=== PATIENT | female | born 1950 | race Caucasian/White ===

== ENCOUNTER 2020-07-13 11:38 | Emergency (ER) | payer BC ==
[~2020-07-13] VITALS: Ht 160 cm; Wt 81.8 kg
== END 2020-07-13 13:44 | disposition home or self-care (01) ==
LOC: ER 11:38
DX: Z20.828 Contact with and (suspected) exposure to other viral communicable diseases (principal); Z88.0 Allergy status to penicillin
CPT/HCPCS: 36415; 87635; 99283